=== PATIENT | female | born 1995 | race Caucasian/White ===

== ENCOUNTER 2021-09-10 11:29 | Emergency (ER) | payer BC ==
[~2021-09-10] VITALS: Ht 175.3 cm; Wt 84.8 kg
[~2021-09-10 11:29] MED LIST: AUGMENTIN 875875 MG PO
[2021-09-10 12:06] VITALS: BP 137/86
[2021-09-10] MEDS ORDERED: PROTONIX40 M4 PO (12:17)
[2021-09-10] MEDS ORDERED: IBUPROFEN 800800 M1 PO (12:52)
[2021-09-10] MEDS ORDERED: CRUTCHES MISCELL (12:53)
== END 2021-09-10 13:00 | disposition home or self-care (01) ==
LOC: ER 11:29
DX: S93.401A Sprain of unspecified ligament of right ankle, initial encounter (principal); Z79.899 Other long term (current) drug therapy; W10.8XXA Fall (on) (from) other stairs and steps, initial encounter; Y93.89 Activity, other specified; Y92.89 Other specified places as the place of occurrence of the external cause; Y99.8 Other external cause status